=== PATIENT | female | born 1950 | race American Indian/Alaskan Native ===

== ENCOUNTER 2022-01-16 01:39 | Inpatient (IN) | payer SELFPAY ==
[2022-01-16] MEDS ORDERED: ONDANSETRON 4 MG/2 ML INJ IV ONE (02:07)
[2022-01-16] MEDS ORDERED: fentaNYL 100 MCG/2 ML INJ IV ONE ×2 (02:07→02:08)
[2022-01-16] MEDS ORDERED: NITROGLYCERIN 2% OINT 1 GM TP ONE ×2 (02:07→02:08)
--- NOTE | 2022-01-16 02:22 | Emergency Department Report ---
HPI - General Chief Complaint: Chest Pain Time Seen by Provider: 01/16/22 01:58 - HPI HPI: Room 3 The patient is a 71-year-old female present with a chief complaint of chest pain. Patient states her symptoms began approximate 1 hour ago while at rest she developed substernal chest pain and pain in her left upper extremity and back described as cramping and constant in nature. Patient admits to shortness of breath and nausea without vomiting associated with her chest pain. Patient denies diaphoresis. Patient currently gives her chest pain a score of 8/10. Patient states she is never had a stress test or cardiac catheterization ED Past Medical Hx - Past Medical History Hx Hypertension: Yes Hx Heart Attack/AMI: Yes Hx Diabetes: Yes - Surgical History Past Surgical History?: No - Family History Family history: no significant - Social History Smoking Status: Never Smoker Substance Use Type: None (Denies illicit drug use) ED Review of Systems ROS: Stated complaint: CHEST PAIN Other details as noted in HPI Constitutional: denies: diaphoresis, fever Eyes: denies: eye pain ENT: denies: throat pain Respiratory: cough, shortness of breath Cardiovascular: chest pain Endocrine: no symptoms reported Gastrointestinal: nausea. denies: vomiting Genitourinary: denies: dysuria Musculoskeletal: back pain Neurological: denies: headache Physical Exam - Physical Exam Vital Signs: Vital Signs 01/16/22 01:56 Temperature 98.8 F Pulse Rate 108 H Respiratory 16 Rate Blood Pressure 210/146 [Right] O2 Sat by Pulse 99 Oximetry Physical Exam: GENERAL: The patient is well-developed well-nourished female lying on stretcher not appearing to be in acute distress. [] HEENT: Normocephalic. Atraumatic. Extraocular motions are intact. Patient has moist mucous membranes. NECK: Supple. Trachea midline CHEST/LUNGS: Clear to auscultation. There is no respiratory distress noted. HEART/CARDIOVASCULAR: Regular. There is no tachycardia. There is no gallop rub or murmur. ABDOMEN: Abdomen is soft, nontender. Patient has normal bowel sounds. There is no abdominal distention. SKIN: There is no rash. There is no edema. There is no diaphoresis. NEURO: The patient is awake, alert, and oriented. The patient is cooperative. The patient has no focal neurologic deficits. The patient has normal speech. GCS 15 MUSCULOSKELETAL:There is no evidence of acute injury. 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 Kwong- no STEMI ED Medical Decision Making - Lab Data Result diagrams: 01/16/22 02:15 01/16/22 02:15 Laboratory Tests 01/16/22 01/16/22 01/16/22 02:15 02:15 02:15 WBC 6.6 RBC 4.34 Hgb 12.9 Hct 39.3 MCV 91 MCH 30 MCHC 33 RDW 13.1 L Plt Count 223 Lymph % (Auto) 28.9 [place] % (Auto) 8.2 H Eos % (Auto) 2.5 Baso % (Auto) 0.8 Lymph # (Auto) 1.9 [place] # (Auto) 0.5 Eos # (Auto) 0.2 Baso # (Auto) 0.1 Seg Neutrophils % 59.6 Seg Neutrophils # 3.9 VBG pH 7.342 Sodium 136 L Potassium 4.3 Chloride 97.8 L Carbon Dioxide 23 Anion Gap 20 BUN 15 Creatinine 1.2 Estimated GFR 44 BUN/Creatinine Ratio 13 Glucose 590 H* Calcium 9.0 Total Creatine Kinase 270 H CK-MB (CK-2) 3.9 CK-MB (CK-2) Rel Index 1.4 Troponin T 0.046 H Triglycerides 314 H Cholesterol 318 H LDL Cholesterol Direct 230 H HDL Cholesterol 41 Cholesterol/HDL Ratio 7.75 Urine Color Urine Turbidity Urine pH Ur Specific [place] Urine Protein Urine Glucose (UA) Urine Ketones Urine Blood Urine Nitrite Ur Reducing Substances Urine Bilirubin Urine Ictotest Urine Urobilinogen Ur Leukocyte Esterase Urine WBC (Auto) Urine RBC (Auto) U Epithel Cells (Auto) 01/16/22 Unknown WBC RBC Hgb Hct MCV MCH MCHC RDW Plt Count Lymph % (Auto) [place] % (Auto) Eos % (Auto) Baso % (Auto) Lymph # (Auto) [place] # (Auto) Eos # (Auto) Baso # (Auto) Seg Neutrophils % Seg Neutrophils # VBG pH Sodium Potassium Chloride Carbon Dioxide Anion Gap BUN Creatinine Estimated GFR BUN/Creatinine Ratio Glucose Calcium Total Creatine Kinase CK-MB (CK-2) CK-MB (CK-2) Rel Index Troponin T Triglycerides Cholesterol LDL Cholesterol Direct HDL Cholesterol Cholesterol/HDL Ratio Urine Color Yellow Urine Turbidity Clear Urine pH 6.5 Ur Specific [place] 1.010 Urine Protein 30 mg/dl Urine Glucose (UA) 500 Urine Ketones Negative Urine Blood Negative Urine Nitrite Negative Ur Reducing Substances Not Reportable Urine Bilirubin Negative Urine Ictotest Not Reportable Urine Urobilinogen < 2.0 Ur Leukocyte Esterase Negative Urine WBC (Auto) 1.0 Urine RBC (Auto) 1.0 U Epithel Cells (Auto) < 1.0 - EKG Data -: EKG Interpreted by Me EKG shows normal: sinus rhythm Rate: normal - EKG Data When compared to previous EKG there are: previous EKG unavailable Interpretation: nonspecific ST-T wave sandeep - Radiology Data Radiology results: report reviewed (Chest x-ray), image reviewed (Chest x-ray) interpreted by me: Chest x-ray-no definite focal infiltrates, no pneumothorax [facility] [address] [place] [address] XRay Report Signed Patient: CHRISTIANE RICHEY MR#: [id number] : 1950 Acct:[id number] Age/Sex: 71 / F ADM Date: 01/16/22 Loc: ED Attending Dr: Ordering Physician: SHANE TATE MD Date of Service: 01/16/22 Procedure(s): XR chest 1V ap Accession Number(s): [id number] cc: SHANE TATE MD Fluoro Time In Minutes: XR chest 1V ap INDICATION / CLINICAL INFORMATION: chest pain. COMPARISON: None available. FINDINGS: SUPPORT DEVICES: None. HEART /PULMONARY VASCULATURE: No significant abnormality. LUNGS / PLEURA: No acute pulmonary or pleural abnormality. No pneumothorax. ADDITIONAL FINDINGS: No significant additional findings. IMPRESSION: 1. No acute findings. Signer Name: Will Feldman MD Signed: 01/16/2022 2:37 AM Workstation Name: [id number] Transcribed By: SHANTHI Dictated By: WILL FELDMAN MD Electronically Authenticated By: WILL FELDMAN MD Signed Date/Time: 01/16/22236 DD/ 6 TD/TT: - Differential Diagnosis ACS, pericarditis, GERD Critical care attestation.: If time is entered above; I have spent that time in minutes in the direct care of this critically ill patient, excluding procedure time. ED Disposition Clinical Impression: Chest pain, Elevated troponin Disposition: ADMITTED INPATIENT Is pt being admited?: Yes Does the pt Need Aspirin: Yes Condition: Fair Instructions: Nonspecific Chest Pain, Adult Time of Disposition: 04:04 (Care transferred to hospitalist (Dr. Hudson))
--- NOTE | 2022-01-16 02:42 | XRay Report ---
XR chest 1V ap INDICATION / CLINICAL INFORMATION: chest pain. COMPARISON: None available. FINDINGS: SUPPORT DEVICES: None. HEART /PULMONARY VASCULATURE: No significant abnormality. LUNGS / PLEURA: No acute pulmonary or pleural abnormality. No pneumothorax. ADDITIONAL FINDINGS: No significant additional findings. IMPRESSION: 1. No acute findings. Signer Name: Mikey Feldman MD Signed: 01/16/2022 2:37 AM Workstation Name: [id number]
[2022-01-16 02:52] LABS: Basophils # (Auto) 0.1 K/mm3 (0.0-0.1); Basophils % (Auto) 0.8 % (0.0-1.8); Eosinophils # (Auto) 0.2 K/mm3 (0.0-0.4); Eosinophils % (Auto) 2.5 % (0.0-4.3); Hematocrit 39.3 % (30.3-42.9); Hemoglobin 12.9 gm/dl (10.1-14.3); Lymphocytes # (Auto) 1.9 K/mm3 (1.2-5.4); Lymphocytes % (Auto) 28.9 % (13.4-35.0); Mean Corpuscular HGB Conc 33 % (30-34); Mean Corpuscular Volume 91 fl (79-97); Monocytes # (Auto) 0.5 K/mm3 (0.0-0.8); Monocytes % (Auto) 8.2 % (0.0-7.3); Platelet Count 223 K/mm3 (140-440); Red Blood Count 4.34 M/mm3 (3.65-5.03); Red Cell Distribution Width 13.1 % (13.2-15.2)
[2022-01-16 02:53] LABS: Creatine Kinase MB 3.9 ng/mL (0.0-4.0)
[2022-01-16 03:57] LABS: Chol/HDL Ratio 7.75 %
[2022-01-16 03:58] LABS: Bilirubin,Urine Negative (Negative); Blood,Urine Negative (Negative); Color,Urine Yellow (Yellow); PH,Urine 6.5 (5.0-7.0); Urobilinogen,Urine < 2.0 mg/dL (<2.0)
[2022-01-16] MEDS ORDERED: ASPIRIN 325 MG TAB PO ONE (04:04)
[2022-01-16] MEDS ORDERED: INSULIN REGULAR, HUMAN 100 UNITS/1 ML IV ONE (04:05)
[2022-01-16] MEDS ORDERED: traMADol 50 MG TAB PO PRN (05:16)
[2022-01-16] MEDS ORDERED: ACETAMINOPHEN 325 MG TAB PO PRN (05:16)
[2022-01-16] MEDS ORDERED: NITROGLYCERIN 0.4 MG TAB SUBL SL PRN (05:16)
[2022-01-16] MEDS ORDERED: DEXTROSE 50% IN WATER (25GM) 50 ML SYRINGE IV PRN (05:16)
[2022-01-16] MEDS ORDERED: MORPHINE 4 MG/1 ML INJ IV PRN (05:16)
[2022-01-16] MEDS ORDERED: HEPARIN 10,000 UNITS/10 ML VIAL IV ONE ×2 (05:19→05:40)
[2022-01-16] MEDS ORDERED: HEPARIN 10,000 UNITS/10 ML VIAL IV PRN (05:19)
[2022-01-16] MEDS ORDERED: hydrALAZINE 20 MG/1 ML INJ IV PRN (05:25)
--- NOTE | 2022-01-16 05:25 | History and Physical Report ---
History of Present Illness Date of examination: 01/16/22 Date of admission: 01/16/22 Chief complaint: Chest pain History of present illness: 71-year-old female with history of hypertension and diabetes was brought to the emergency room because of chest pain. Patient states her symptoms began approximate 1 hour ago while at rest she developed substernal chest pain and pain in her left upper extremity and back described as cramping and constant in nature. Patient admits to shortness of breath and nausea without vomiting associated with her chest pain. Patient denies diaphoresis. Patient currently gives her chest pain a score of 8/10. Patient states she is never had a stress test or cardiac catheterization In the emergency room patient blood glucose is 590 also patient troponin is 0.046, triglycerides 314 and LDL 230.'s were going to admit the patient , put the patient on aspirin and heparin drip and consult cardiology for evaluation Past History Past Medical History: acute [place], diabetes, hypertension Past Surgical History: No surgical history Social history: no significant social history Family history: diabetes, hypertension Medications and Allergies Allergies Allergy/AdvReac Type Severity Reaction Status Date / Time No Known Allergies Allergy Unverified 01/16/22 01:57 Active Meds: Active Medications Acetaminophen (Acetaminophen 325 Mg Tab) 650 mg PO Q6H PRN PRN Reason: Pain, Mild (1-3) Aspirin (Aspirin Ec 325 Mg Tab) 325 mg PO QDAY BEN Atorvastatin Calcium (Atorvastatin 40 Mg Tab) 40 mg PO QHS BEN Dextrose (Dextrose 50% In Water (25gm) 50 Ml Syringe) 50 ml IV Q30MIN PRN; Protocol PRN Reason: Hypoglycemia Sodium Chloride (Nacl 0.9% 1000 Ml) 1,000 mls @ 100 mls/hr IV DIRECT BEN Insulin Human Lispro (Insulin Lispro 100 Unit/Ml) 0 unit SUB-Q Q6HR BEN; Protocol Morphine Sulfate (Morphine 4 Mg/1 Ml Inj) 2 mg IV Q5MIN PRN PRN Reason: Chest Pain unrelieved by NTG Nitroglycerin (Nitroglycerin 0.4 Mg Tab Subl) 0.4 mg SL Q5M PRN PRN Reason: Chest Pain Pantoprazole Sodium (Pantoprazole 40 Mg Tab) 40 mg PO QDAY BEN Sodium Chloride (Sodium Chloride 0.9% 10 Ml Flush Syringe) 10 ml IV PRN PRN PRN Reason: LINE FLUSH Tramadol HCl (Tramadol 50 Mg Tab) 50 mg PO Q6H PRN PRN Reason: Pain, Moderate (4-6) Review of Systems All systems: negative Cardiovascular: chest pain, shortness of breath, dyspnea on exertion Respiratory: shortness of breath, dyspnea on exertion Exam - Constitutional Vitals: Temp Pulse Resp BP Pulse Ox 98.6 F 93 H 20 189/103 98 01/16/22 03:00 01/16/22 03:00 01/16/22 03:00 01/16/22 03:00 01/16/22 03:00 General appearance: Present: no acute distress, well-nourished - EENT Eyes: Present: PERRL ENT: hearing intact, clear oral mucosa - Neck Neck: Present: supple, normal ROM - Respiratory Respiratory effort: normal Respiratory: bilateral: CTA - Cardiovascular Heart Sounds: Present: S1 & S2. Absent: rub, click - Extremities Extremities: pulses symmetrical, No edema Peripheral Pulses: within normal limits - Abdominal General gastrointestinal: Present: soft, non-tender, non-distended, normal bowel sounds Female genitourinary: Present: normal - Integumentary Integumentary: Present: clear, warm, dry - Musculoskeletal Musculoskeletal: gait normal, strength equal bilaterally - Psychiatric Psychiatric: appropriate mood/affect, intact judgment & insight - Neurologic Neurologic: CNII-XII intact, moves all extremities HEART Score - HEART Score Troponin: Troponin T 0.046 ng/mL (0.00-0.029) H 01/16/22 02:15 Results - Labs CBC & Chem 7: 01/16/22 02:15 01/16/22 02:15 Labs: Laboratory Last Values WBC 6.6 K/mm3 (4.5-11.0) 01/16/22 02:15 RBC 4.34 M/mm3 (3.65-5.03) 01/16/22 02:15 Hgb 12.9 gm/dl (10.1-14.3) 01/16/22 02:15 Hct 39.3 % (30.3-42.9) 01/16/22 02:15 MCV 91 fl (79-97) 01/16/22 02:15 MCH 30 pg (28-32) 01/16/22 02:15 MCHC 33 % (30-34) 01/16/22 02:15 RDW 13.1 % (13.2-15.2) L 01/16/22 02:15 Plt Count 223 K/mm3 (140-440) 01/16/22 02:15 Lymph % (Auto) 28.9 % (13.4-35.0) 01/16/22 02:15 [place] % (Auto) 8.2 % (0.0-7.3) H 01/16/22 02:15 Eos % (Auto) 2.5 % (0.0-4.3) 01/16/22 02:15 Baso % (Auto) 0.8 % (0.0-1.8) 01/16/22 02:15 Lymph # (Auto) 1.9 K/mm3 (1.2-5.4) 01/16/22 02:15 [place] # (Auto) 0.5 K/mm3 (0.0-0.8) 01/16/22 02:15 Eos # (Auto) 0.2 K/mm3 (0.0-0.4) 01/16/22 02:15 Baso # (Auto) 0.1 K/mm3 (0.0-0.1) 01/16/22 02:15 Seg Neutrophils % 59.6 % (40.0-70.0) 01/16/22 02:15 Seg Neutrophils # 3.9 K/mm3 (1.8-7.7) 01/16/22 02:15 VBG pH 7.342 (7.320-7.420) 01/16/22 02:15 Sodium 136 mmol/L (137-145) L 01/16/22 02:15 Potassium 4.3 mmol/L (3.6-5.0) 01/16/22 02:15 Chloride 97.8 mmol/L (98-107) L 01/16/22 02:15 Carbon Dioxide 23 mmol/L (22-30) 01/16/22 02:15 Anion Gap 20 mmol/L 01/16/22 02:15 BUN 15 mg/dL (7-17) 01/16/22 02:15 Creatinine 1.2 mg/dL (0.6-1.2) 01/16/22 02:15 Estimated GFR 44 ml/min 01/16/22 02:15 BUN/Creatinine Ratio 13 % 01/16/22 02:15 Glucose 590 mg/dL (65-100) H* 01/16/22 02:15 Calcium 9.0 mg/dL (8.4-10.2) 01/16/22 02:15 Total Creatine Kinase 270 units/L (30-135) H 01/16/22 02:15 CK-MB (CK-2) 3.9 ng/mL (0.0-4.0) 01/16/22 02:15 CK-MB (CK-2) Rel Index 1.4 (0-4) 01/16/22 02:15 Troponin T 0.046 ng/mL (0.00-0.029) H 01/16/22 02:15 Triglycerides 314 mg/dL (2-149) H 01/16/22 02:15 Cholesterol 318 mg/dL (50-199) H 01/16/22 02:15 LDL Cholesterol Direct 230 mg/dL (50-130) H 01/16/22 02:15 HDL Cholesterol 41 mg/dL (40-59) 01/16/22 02:15 Cholesterol/HDL Ratio 7.75 % 01/16/22 02:15 Urine Color Yellow (Yellow) 01/16/22 Unknown Urine Turbidity Clear (Clear) 01/16/22 Unknown Urine pH 6.5 (5.0-7.0) 01/16/22 Unknown Ur Specific [place] 1.010 (1.003-1.030) 01/16/22 Unknown Urine Protein 30 mg/dl mg/dL (Negative) 01/16/22 Unknown Urine Glucose (UA) 500 mg/dL (Negative) 01/16/22 Unknown Urine Ketones Negative mg/dL (Negative) 01/16/22 Unknown Urine Blood Negative (Negative) 01/16/22 Unknown Urine Nitrite Negative (Negative) 01/16/22 Unknown Ur Reducing Substances Not Reportable 01/16/22 Unknown Urine Bilirubin Negative (Negative) 01/16/22 Unknown Urine Ictotest Not Reportable 01/16/22 Unknown Urine Urobilinogen < 2.0 mg/dL (<2.0) 01/16/22 Unknown Ur Leukocyte Esterase Negative (Negative) 01/16/22 Unknown Urine WBC (Auto) 1.0 /HPF (0.0-6.0) 01/16/22 Unknown Urine RBC (Auto) 1.0 /HPF (0.0-6.0) 01/16/22 Unknown U Epithel Cells (Auto) < 1.0 /HPF (0-13.0) 01/16/22 Unknown - Imaging and Cardiology Chest x-ray: report reviewed Assessment and Plan VTE prophylaxis?: Chemical Plan of care discussed with patient/family: Yes - Patient Problems (1) ACS (acute coronary syndrome) Current Visit: Yes Status: Acute Plan to address problem: Admit the patient to the medical telemetry. Aspirin 325 mg p.o. daily. Lipitor 40 mg p.o. daily. Nitroglycerin as needed. Heparin drip as per protocol. Serial cardiac enzymes. Echocardiogram. Cardiology evaluation (2) Diabetes 1.5, managed as type 2 Current Visit: Yes Status: Acute Plan to address problem: Accu-Chek every 6 hours with Humalog high-dose coverage. Diabetic education. Recheck BMP in the morning (3) Hypertension Current Visit: Yes Status: Acute Plan to address problem: Hydralazine 10 mg IV every 6 hours as needed. We continue the home medication (4) Elevated troponin Current Visit: Yes Status: Acute Plan to address problem: Aspirin 325 mg p.o. daily. Lipitor 40 mg p.o. daily. Nitroglycerin as needed. Heparin drip as per protocol. Serial cardiac enzymes. Echocardiogram. Cardiology evaluation (5) History of [place] (myocardial infarction) Current Visit: Yes Status: Acute Plan to address problem: Aspirin 325 mg p.o. daily. Lipitor 40 mg p.o. daily. Nitroglycerin as needed. Heparin drip as per protocol. Serial cardiac enzymes. Echocardiogram. Cardiology evaluation (6) DVT prophylaxis Current Visit: Yes Status: Acute Plan to address problem: Heparin 5000 units subcu every 12 hours for DVT prophylaxis. Protonix 40 mg p.o. daily for GI prophylaxis. Patient is a full code
[2022-01-16] MEDS ORDERED: SODIUM CHLORIDE 0.9% 1000 ML 1,000 ML IV SCH (05:30)
[2022-01-16] MEDS ORDERED: HEPARIN/ 0.45% NACL DRIP 25,000 UNIT/500 ML BAG IV SCH (06:00)
[2022-01-16] MEDS: INSULIN LISPRO 100 UNIT/ML SUB-Q SCH ×4 (06:20→23:34)
[2022-01-16 06:41] LABS: INR 0.78 (0.87-1.13)
[2022-01-16 06:42] LABS: Partial Thromboplastin Time 30.2 Sec. (24.2-36.6)
[2022-01-16] MEDS ORDERED: INSULIN GLARGINE 100 UNITS/ML SUB-Q NR (08:41)
[2022-01-16] MEDS: PANTOPRAZOLE 40 MG TAB PO SCH (10:07)
--- NOTE | 2022-01-16 11:18 | Electrocardiograph Report ---
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 No previous ECG available for comparison Electronically Signed On 01-16-2022 11:17:50 EDT by Vipin Stokes
--- NOTE | 2022-01-16 11:26 | Electrocardiograph Report ---
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
[2022-01-16] MEDS ORDERED: INSULIN REGULAR, HUMAN 100 UNITS/1 ML SUB-Q SCH (11:30)
[2022-01-16] MEDS ORDERED: SODIUM CHLORIDE 0.9% 500 ML 500 ML IV SCH (12:00)
[2022-01-16] MEDS: METOPROLOL TARTRATE 25 MG TAB PO SCH ×2 (12:37→21:36)
--- NOTE | 2022-01-16 14:28 | Consultation ---
History of Present Illness Consult date: 01/16/22 Requesting physician: ALICE PARRA Consult reason: chest pain History of present illness: Patient is a 71-year-old female with a reported past medical history of hypertension, diabetes, and history of PE (she reports she had one last year) who presents to the ED with complaint of chest pain x1 day. Patient reports that yesterday evening she developed chest pain in her substernal area. She describes chest pain as pressure and rated as 10 out of 10. She reports chest pain is worse with deep breathing and palpation. Patient came to the ED for further evaluation. In the ED patient was found to have a blood glucose of 590, minimally elevated troponin, and elevated SBP> 200. Of note at time of in [facility] patient reports that she has not taken any medications in the past 4 months. Patient reports that she recently moved from [place] to [place] about 4 months ago and since moving she has been out of her blood pressure medications, diabetes medication, and has not been on her anticoagulants. At time of interview patient does report that her chest pain has improved. She denies shortness of breath, nausea, vomiting, diaphoresis. Patient is previously unknown to our practice. Cardiology is consulted for ACS. Past History Past Medical History: acute CT, diabetes, hypertension Past Surgical History: No surgical history Social history: no significant social history Family history: diabetes, hypertension Medications and Allergies Allergies Allergy/AdvReac Type Severity Reaction Status Date / Time No Known Allergies Allergy Verified 01/16/22 05:30 Active Meds: Active Medications Acetaminophen (Acetaminophen 325 Mg Tab) 650 mg PO Q6H PRN PRN Reason: Pain, Mild (1-3) Aspirin (Aspirin Ec 325 Mg Tab) 325 mg PO QDAY BEN Atorvastatin Calcium (Atorvastatin 40 Mg Tab) 40 mg PO QHS BEN Dextrose (Dextrose 50% In Water (25gm) 50 Ml Syringe) 50 ml IV Q30MIN PRN; Protocol PRN Reason: Hypoglycemia Hydralazine HCl (Hydralazine 20 Mg/1 Ml Inj) 10 mg IV Q6H PRN PRN Reason: Blood Pressure Sodium Chloride (Nacl 0.9% 1000 Ml) 1,000 mls @ 100 mls/hr IV DIRECT BEN Last Admin: 01/16/22 07:54 Dose: 100 mls/hr Heparin Sodium/Sodium Chloride (Heparin/ 0.45% Nacl-25,000 Unit/500 Ml) 25,000 unit in 500 mls @ 20 mls/hr IV TITRATE BEN; Protocol Last Admin: 01/16/22 07:49 Dose: 1,000 units/hr, 20 mls/hr Sodium Chloride (Nacl 0.9% 500 Ml) 500 mls @ 50 mls/hr IV DIRECT BEN Stop: 01/16/22 21:59 Insulin Human Lispro (Insulin Lispro 100 Unit/Ml) 0 unit SUB-Q Q6HR [facility]; Pro tocol Last Admin: 01/16/22 12:37 Dose: 4 unit Metoprolol Tartrate (Metoprolol Tartrate 25 Mg Tab) 25 mg PO BID BEN Last Admin: 01/16/22 12:37 Dose: 25 mg Morphine Sulfate (Morphine 4 Mg/1 Ml Inj) 2 mg IV Q5MIN PRN PRN Reason: Chest Pain unrelieved by NTG Nitroglycerin (Nitroglycerin 0.4 Mg Tab Subl) 0.4 mg SL Q5M PRN PRN Reason: Chest Pain Pantoprazole Sodium (Pantoprazole 40 Mg Tab) 40 mg PO QDAY [facility] Last Admin: 01/16/22 10:07 Dose: 40 mg Pneumococcal Polyvalent Vaccine (Pneumococcal 23 Valent 0.5 Ml Vial) 0.5 ml IM .ONCE ONE Stop: 01/17/22 12:01 Sodium Chloride (Sodium Chloride 0.9% 10 Ml Flush Syringe) 10 ml IV PRN PRN PRN Reason: LINE FLUSH Tramadol HCl (Tramadol 50 Mg Tab) 50 mg PO Q6H PRN PRN Reason: Pain, Moderate (4-6) Review of Systems Constitutional: no weight loss, no weight gain Ears, nose, mouth and throat: no ear pain, no ear discharge Cardiovascular: chest pain, no orthopnea, no palpitations Respiratory: no shortness of breath, no dyspnea on exertion Gastrointestinal: no abdominal pain, no nausea, no vomiting Musculoskeletal: no neck stiffness, no neck pain Integumentary: no rash, no pruritis, no redness Neurological: no head injury, no transient paralysis, no paralysis Psychiatric: no anxiety, no memory loss Endocrine: no cold intolerance, no heat intolerance Physical Examination Vital Signs Pulse Resp 101 H 22 01/16/22 01:48 01/16/22 01:48 General appearance: no acute distress HEENT: Positive: PERRL Cardiac: Positive: Reg Rate and Rhythm Lungs: Positive: Normal Breath Sounds Neuro: Positive: Grossly Intact Abdomen: Positive: Soft, Active Bowel Sounds Skin: Negative: Rash, Suspicious Lesions, Ulceration Extremities: Present: upper extr. pulses. Absent: edema Results 01/16/22 02:15 01/16/22 02:15 Cardiac Enzymes 01/16/22 Range/Units 02:15 CK-MB (CK-2) 3.9 (0.0-4.0) ng/mL Coagulation 01/16/22 Range/Units 05:53 PT 11.9 L (12.2-14.9) Sec. INR 0.78 L (0.87-1.13) APTT 30.2 (24.2-36.6) Sec. Lipids 01/16/22 Range/Units 02:15 Triglycerides 314 H (2-149) mg/dL Cholesterol 318 H (50-199) mg/dL HDL Cholesterol 41 (40-59) mg/dL Cholesterol/HDL Ratio 7.75 % CBC 01/16/22 Range/Units 02:15 WBC 6.6 (4.5-11.0) K/mm3 RBC 4.34 (3.65-5.03) M/mm3 Hgb 12.9 (10.1-14.3) gm/dl Hct 39.3 (30.3-42.9) % Plt Count 223 (140-440) K/mm3 Lymph # (Auto) 1.9 (1.2-5.4) K/mm3 [place] # (Auto) 0.5 (0.0-0.8) K/mm3 Eos # (Auto) 0.2 (0.0-0.4) K/mm3 Baso # (Auto) 0.1 (0.0-0.1) K/mm3 Comprehensive Metabolic Panel 01/16/22 Range/Units 02:15 Sodium 136 L (137-145) mmol/L Potassium 4.3 (3.6-5.0) mmol/L Chloride 97.8 L (98-107) mmol/L Carbon Dioxide 23 (22-30) mmol/L BUN 15 (7-17) mg/dL Creatinine 1.2 (0.6-1.2) mg/dL Glucose 590 H* (65-100) mg/dL Calcium 9.0 (8.4-10.2) mg/dL - Imaging and Cardiology Echo: report reviewed Cardiac cath: pending EKG interpretations - Telemetry EKG Rhythm: Sinus Rhythm - EKG Sinus rhythms and dysrhythmias: sinus rhythm Assessment and Plan Patient is a 71-year-old female with a reported past medical history of hypertension, diabetes, and history of PE (she reports she had one last year) who presents to the ED with complaint of chest pain x1 day. NSTEMI Hypertensive urgency Uncontrolled diabetes History of PE not on anticoagulation Noncompliance Obesity Echo 01/16/2022-EF 50 to 55%. Mild diastolic dysfunction is present impaired relaxation pattern. Right ventricle systolic function is normal. Left and right atrium are normal in size. No pericardial effusion Plan: EKG shows sinus rhythm no acute ischemic changes.. Troponins noted to be elev ated 0.04->0.9 Patient currently on aspirin, atorvastatin 40 mg p.o. nightly Anticoagulation with heparin gtt Initiate metoprolol 25 mg p.o. twice daily Patient for cardiac cath in the a.m. Patient to be n.p.o. after midnight Plan of care discussed with patient who verbalized understanding and ericka ortiz Patient seen in conjunction with Dr. Stokes who agrees with plan of care - Patient Problems (1) Non-compliance Current Visit: Yes Status: Acute (2) ACS (acute coronary syndrome) Current Visit: Yes Status: Acute (3) Chest pain Current Visit: Yes Status: Acute (4) Diabetes 1.5, managed as type 2 Current Visit: Yes Status: Acute (5) Hypertension Current Visit: Yes Status: Acute
--- NOTE | 2022-01-16 16:00 | Progress Note ---
Assessment and Plan Assessment and plan: History of present illness: 71-year-old female with history of hypertension and diabetes was brought to the emergency room because of chest pain. Patient states her symptoms began approximate 1 hour ago while at rest she developed substernal chest pain and pain in her left upper extremity and back described as cramping and constant in nature. Patient admits to shortness of breath and nausea without vomiting associated with her chest pain. Patient denies diaphoresis. Patient currently gives her chest pain a score of 8/10. Patient states she is never had a stress test or cardiac catheterization In the emergency room patient blood glucose is 590 also patient troponin is 0.046, triglycerides 314 and LDL 230.'s were going to admit the patient , put the patient on aspirin and heparin drip and consult cardiology for evaluation hospital course: 01/16 : patient is noncompliant with medications. Blood noted. Added lantus in addition to sliding scale. Last accucheck shows bg 216. Patient also has a history of PE/DVT. She is not currently hypoxic or tachycardic. Will order a d- dimer. If elevated, will consider CTA Chest. Troponin uptrending from 0.04 --> 0.947 -> 1.350. D/w cardiology who will take patient to labor contract analyst tomorrow. Assessment and plan: # ACS (acute coronary syndrome) Current Visit: Yes Status: Acute Plan to address problem: Admit the patient to the medical telemetry. Aspirin 81 mg p.o. daily. Lipitor 40 mg p.o. daily. Metoprolol 25 mg po bid Nitroglycerin as needed. Heparin drip as per protocol. Serial cardiac enzymes 0.04 --> 0.947 -> 1.350. Echocardiogram: EF 50-55% Cardiology evaluation- plan for cath tomorrow AM #Type 2 diabetes with hyperglycemia Current Visit: Yes Status: Acute Plan to address problem: Accu-Chek every 6 hours with Humalog high-dose coverage. Diabetic education. Recheck BMP in the morning Lantus 25 units qhs # Hypertension Current Visit: Yes Status: Acute Plan to address problem: Hydralazine 10 mg IV every 6 hours as needed. We continue the home medication metoprolol 25 mg po bid # Elevated troponin Current Visit: Yes Status: Acute Plan to address problem: Aspirin 325 mg p.o. daily. Lipitor 40 mg p.o. daily. Nitroglycerin as needed. Heparin drip as per protocol. Serial cardiac enzymes. Echocardiogram. Cardiol ogy evaluation #History of GA (myocardial infarction) Current Visit: Yes Status: Acute Plan to address problem: -Risk factors noted -cardiology eval #History of PE - not on DOAC, stopped 4 mo ago. - d- dimer ordered - will determine post cath optimal AC strategy going forward # DVT prophylaxis Current Visit: Yes Status: Acute Plan to address problem: Heparin 5000 units subcu every 12 hours for DVT prophylaxis. Protonix 40 mg p.o. daily for GI prophylaxis. Patient is a full code #Morbid Obesity - BMI - Counseled patient on the importance of weight loss, incorporating exercise, and dietary changes (lean meats, fresh fruits and vegetables, and water intake). Patient expresses understanding. - Time: +15 min #Advance care planning Disease education conducted, care plan discussed, diagnoses discussed, prognosis discussed, patient is full code, patient acknowledges understanding and agree with care plan, +30 minutes. History Interval history: No acute complaints this morning. Hospitalist Physical - Physical exam Narrative exam: Physical Exam: VITAL SIGNS: Reviewed. GENERAL: The patient appears normally developed, Vital signs as documented. Obese HEAD: No signs of head trauma. EYES: Pupils are equal. Extraocular motions intact. EARS: Hearing grossly intact. MOUTH: Oropharynx is normal. NECK: No adenopathy, no JVD. CHEST: Chest with clear breath sounds bilaterally. No wheezes, rales, or rhonchi. CARDIAC: Regular rate and rhythm. S1 and S2, without murmurs, gallops, or rubs. VASCULAR: No Edema. Peripheral pulses normal and equal in all extremities. ABDOMEN: Soft, non tender and non distended. No rebound or guarding, and no masses palpated. Bowel Sounds normal. MUSCULOSKELETAL: Good range of motion of all major joints. Extremities without clubbing, cyanosis or edema. NEUROLOGIC EXAM: Alert and oriented x 4. no focal sensory or strength deficits. PSYCHIATRIC: Mood normal. SKIN: detail exam as documented in skin assessment - Constitutional Vitals: Temp Pulse Resp BP Pulse Ox 98.2 F 78 18 148/87 99 01/16/22 12:15 01/16/22 12:15 01/16/22 12:15 01/16/22 12:15 01/16/22 12:15 General appearance: Present: no acute distress HEART Score - HEART Score Troponin: Troponin T 1.350 ng/mL (0.00-0.029) H* D 01/16/22 12:01 Results - Labs CBC & Chem 7: 01/16/22 02:15 01/16/22 02:15 Labs: Laboratory Last Values WBC 6.6 K/mm3 (4.5-11.0) 01/16/22 02:15 RBC 4.34 M/mm3 (3.65-5.03) 01/16/22 02:15 Hgb 12.9 gm/dl (10.1-14.3) 01/16/22 02:15 Hct 39.3 % (30.3-42.9) 01/16/22 02:15 MCV 91 fl (79-97) 01/16/22 02:15 MCH 30 pg (28-32) 01/16/22 02:15 MCHC 33 % (30-34) 01/16/22 02:15 RDW 13.1 % (13.2-15.2) L 01/16/22 02:15 Plt Count 223 K/mm3 (140-440) 01/16/22 02:15 Lymph % (Auto) 28.9 % (13.4-35.0) 01/16/22 02:15 [place] % (Auto) 8.2 % (0.0-7.3) H 01/16/22 02:15 Eos % (Auto) 2.5 % (0.0-4.3) 01/16/22 02:15 Baso % (Auto) 0.8 % (0.0-1.8) 01/16/22 02:15 Lymph # (Auto) 1.9 K/mm3 (1.2-5.4) 01/16/22 02:15 [place] # (Auto) 0.5 K/mm3 (0.0-0.8) 01/16/22 02:15 Eos # (Auto) 0.2 K/mm3 (0.0-0.4) 01/16/22 02:15 Baso # (Auto) 0.1 K/mm3 (0.0-0.1) 01/16/22 02:15 Seg Neutrophils % 59.6 % (40.0-70.0) 01/16/22 02:15 Seg Neutrophils # 3.9 K/mm3 (1.8-7.7) 01/16/22 02:15 PT 11.9 Sec. (12.2-14.9) L 01/16/22 05:53 INR 0.78 (0.87-1.13) L 01/16/22 05:53 APTT 30.2 Sec. (24.2-36.6) 01/16/22 05:53 Heparin Anti-Xa Level 0.39 U.I./ml (0.3-0.7) 01/16/22 14:56 VBG pH 7.342 (7.320-7.420) 01/16/22 02:15 Sodium 136 mmol/L (137-145) L 01/16/22 02:15 Potassium 4.3 mmol/L (3.6-5.0) 01/16/22 02:15 Chloride 97.8 mmol/L (98-107) L 01/16/22 02:15 Carbon Dioxide 23 mmol/L (22-30) 01/16/22 02:15 Anion Gap 20 mmol/L 01/16/22 02:15 BUN 15 mg/dL (7-17) 01/16/22 02:15 Creatinine 1.2 mg/dL (0.6-1.2) 01/16/22 02:15 Estimated GFR 44 ml/min 01/16/22 02:15 BUN/Creatinine Ratio 13 % 01/16/22 02:15 Glucose 590 mg/dL (65-100) H* 01/16/22 02:15 POC Glucose 216 mg/dL (70-105) H 01/16/22 12:12 Calcium 9.0 mg/dL (8.4-10.2) 01/16/22 02:15 Total Creatine Kinase 270 units/L (30-135) H 01/16/22 02:15 CK-MB (CK-2) 3.9 ng/mL (0.0-4.0) 01/16/22 02:15 CK-MB (CK-2) Rel Index 1.4 (0-4) 01/16/22 02:15 Troponin T 1.350 ng/mL (0.00-0.029) H* D 01/16/22 12:01 Triglycerides 314 mg/dL (2-149) H 01/16/22 02:15 Cholesterol 318 mg/dL (50-199) H 01/16/22 02:15 LDL Cholesterol Direct 230 mg/dL (50-130) H 01/16/22 02:15 HDL Cholesterol 41 mg/dL (40-59) 01/16/22 02:15 Cholesterol/HDL Ratio 7.75 % 01/16/22 02:15 Urine Color Yellow (Yellow) 01/16/22 Unknown Urine Turbidity Clear (Clear) 01/16/22 Unknown Urine pH 6.5 (5.0-7.0) 01/16/22 Unknown Ur Specific [place] 1.010 (1.003-1.030) 01/16/22 Unknown Urine Protein 30 mg/dl mg/dL (Negative) 01/16/22 Unknown Urine Glucose (UA) 500 mg/dL (Negative) 01/16/22 Unknown Urine Ketones Negative mg/dL (Negative) 01/16/22 Unknown Urine Blood Negative (Negative) 01/16/22 Unknown Urine Nitrite Negative (Negative) 01/16/22 Unknown Ur Reducing Substances Not Reportable 01/16/22 Unknown Urine Bilirubin Negative (Negative) 01/16/22 Unknown Urine Ictotest Not Reportable 01/16/22 Unknown Urine Urobilinogen < 2.0 mg/dL (<2.0) 01/16/22 Unknown Ur Leukocyte Esterase Negative (Negative) 01/16/22 Unknown Urine WBC (Auto) 1.0 /HPF (0.0-6.0) 01/16/22 Unknown Urine RBC (Auto) 1.0 /HPF (0.0-6.0) 01/16/22 Unknown U Epithel Cells (Auto) < 1.0 /HPF (0-13.0) 01/16/22 Unknown Active Medications - Current Medications Current Medications: Generic Name Dose Route Start Last Admin Trade Name Freq PRN Reason Stop Dose Admin Acetaminophen 650 mg 01/16/22 05:16 Acetaminophen 325 Mg Tab PO Q6H PRN Pain, Mild (1-3) Aspirin 325 mg 01/17/22 10:00 Aspirin Ec 325 Mg Tab PO QDAY BEN Atorvastatin Calcium 40 mg 01/16/22 22:00 Atorvastatin 40 Mg Tab PO QHS BEN Dextrose 50 ml 01/16/22 05:16 Dextrose 50% In Water (25gm) 50 Ml Syringe IV Q30MIN PRN Hypoglycemia Protocol Hydralazine HCl 10 mg 01/16/22 05:25 Hydralazine 20 Mg/1 Ml Inj IV Q6H PRN Blood Pressure Sodium Chloride 1,000 mls @ 100 mls/hr 01/16/22 05:30 01/16/22 07:54 Nacl 0.9% 1000 Ml IV 100 mls/hr DIRECT BEN Administration Heparin Sodium/Sodium Chloride 25,000 unit in 500 mls @ 20 mls/hr 01/16/22 06:00 01/16/22 15:51 Heparin/ 0.45% Nacl-25,000 Unit/500 Ml IV 900 units/hr TITRATE BEN 18 mls/hr Titration Protocol 1,000 UNITS/HR Sodium Chloride 500 mls @ 50 mls/hr 01/16/22 12:00 Nacl 0.9% 500 Ml IV 01/16/22 21:59 DIRECT BEN Insulin Human Lispro 0 unit 01/16/22 06:00 01/16/22 12:37 Insulin Lispro 100 Unit/Ml SUB-Q 4 unit Q6HR BEN Administration Protocol Metoprolol Tartrate 25 mg 01/16/22 12:00 01/16/22 12:37 Metoprolol Tartrate 25 Mg Tab PO 25 mg BID BEN Administration Morphine Sulfate 2 mg 01/16/22 05:16 Morphine 4 Mg/1 Ml Inj IV Q5MIN PRN Chest Pain unrelieved by NTG Nitroglycerin 0.4 mg 01/16/22 05:16 Nitroglycerin 0.4 Mg Tab Subl SL Q5M PRN Chest Pain Pantoprazole Sodium 40 mg 01/16/22 10:00 01/16/22 10:07 Pantoprazole 40 Mg Tab PO 40 mg QDAY BEN Administration Pneumococcal Polyvalent Vaccine 0.5 ml 01/17/22 12:00 Pneumococcal 23 Valent 0.5 Ml Vial IM 01/17/22 12:01 .ONCE ONE Sodium Chloride 10 ml 01/16/22 05:16 Sodium Chloride 0.9% 10 Ml Flush Syringe IV PRN PRN LINE FLUSH Tramadol HCl 50 mg 01/16/22 05:16 Tramadol 50 Mg Tab PO Q6H PRN Pain, Moderate (4-6)
[2022-01-17 04:23] LABS: Basophils % (Auto) 0.4 % (0.0-1.8); Eosinophils # (Auto) 0.2 K/mm3 (0.0-0.4); Eosinophils % (Auto) 2.1 % (0.0-4.3); Hematocrit 38.8 % (30.3-42.9); Hemoglobin 12.8 gm/dl (10.1-14.3); Lymphocytes # (Auto) 1.6 K/mm3 (1.2-5.4); Lymphocytes % (Auto) 22.5 % (13.4-35.0); Mean Corpuscular HGB Conc 33 % (30-34); Mean Corpuscular Volume 90 fl (79-97); Monocytes # (Auto) 0.5 K/mm3 (0.0-0.8); Platelet Count 235 K/mm3 (140-440); Red Blood Count 4.33 M/mm3 (3.65-5.03); Red Cell Distribution Width 13.7 % (13.2-15.2)
[2022-01-17 04:30] LABS: INR 0.9 (0.87-1.13)
[2022-01-17 04:35] LABS: Partial Thromboplastin Time 62.9 Sec. (24.2-36.6)
[2022-01-17] MEDS: INSULIN LISPRO 100 UNIT/ML SUB-Q SCH ×3 (07:36→17:41)
--- NOTE | 2022-01-17 07:59 | Progress Note ---
Assessment and Plan Assessment and plan: History of present illness: 71-year-old female with history of hypertension and diabetes was brought to the emergency room because of chest pain. Patient states her symptoms began approximate 1 hour ago while at rest she developed substernal chest pain and pain in her left upper extremity and back described as cramping and constant in nature. Patient admits to shortness of breath and nausea without vomiting associated with her chest pain. Patient denies diaphoresis. Patient currently gives her chest pain a score of 8/10. Patient states she is never had a stress test or cardiac catheterization In the emergency room patient blood glucose is 590 also patient troponin is 0.046, triglycerides 314 and LDL 230.'s were going to admit the patient , put the patient on aspirin and heparin drip and consult cardiology for evaluation hospital course: 01/16 : patient is noncompliant with medications. Blood noted. Added lantus in addition to sliding scale. Last accucheck shows bg 216. Patient also has a history of PE/DVT. She is not currently hypoxic or tachycardic. Will order a d- dimer. If elevated, will consider CTA Chest. Troponin uptrending from 0.04 --> 0.947 -> 1.350. D/w cardiology who will take patient to blood bank laboratory technician tomorrow. 01/17: Patient post cath. D/w Dr. Aguilera. Pt recieved stent to RCA. Likely d/c tomorrow home with family. CM attempting to allocate contact info for family. Assessment and plan: # ACS (acute coronary syndrome) Current Visit: Yes Status: Acute Plan to address problem: Admit the patient to the medical telemetry. Aspirin 81 mg p.o. daily. Lipitor 40 mg p.o. daily. Metoprolol 25 mg po bid Nitroglycerin as needed. Heparin drip as per protocol. Serial cardiac enzymes 0.04 --> 0.947 -> 1.350. Echocardiogram: EF 50-55% Cardiology evaluation- plan for cath tomorrow AM #Type 2 diabetes with hyperglycemia Current Visit: Yes Status: Acute Plan to address problem: Accu-Chek every 6 hours with Humalog high-dose coverage. Diabetic education. Recheck BMP in the morning Lantus 25 units qhs # Hypertension Current Visit: Yes Status: Acute Plan to address problem: Hydralazine 10 mg IV every 6 hours as needed. We continue the home medication metoprolol 25 mg po bid # Elevated troponin Current Visit: Yes Status: Acute Plan to address problem: Aspirin 325 mg p.o. daily. Lipitor 40 mg p.o. daily. Nitroglycerin as needed. Heparin drip as per protocol. Serial cardiac enzymes. Echocardiogram. Cardiology evaluation #History of DE (myocardial infarction) Current Visit: Yes Status: Acute Plan to address problem: -Risk factors noted -cardiology eval #History of PE - not on DOAC, stopped 4 mo ago. - d- dimer ordered - will determine post cath optimal AC strategy going forward # DVT prophylaxis Current Visit: Yes Status: Acute Plan to address problem: Heparin 5000 units subcu every 12 hours for DVT prophylaxis. Protonix 40 mg p.o. daily for GI prophylaxis. Patient is a full code #Morbid Obesity - BMI - Counseled patient on the importance of weight loss, incorporating exercise, and dietary changes (lean meats, fresh fruits and vegetables, and water intake). Patient expresses understanding. - Time: +15 min #Advance care planning Disease education conducted, care plan discussed, diagnoses discussed, prognosis discussed, patient is full code, patient acknowledges understanding and agree with care plan, +30 minutes. History Interval history: Nauseous post cath. ordered zofran. Hospitalist Physical - Physical exam Narrative exam: Physical Exam: VITAL SIGNS: Reviewed. GENERAL: The patient appears normally developed, Vital signs as documented. Obese HEAD: No signs of head trauma. EYES: Pupils are equal. Extraocular motions intact. EARS: Hearing grossly intact. MOUTH: Oropharynx is normal. NECK: No adenopathy, no JVD. CHEST: Chest with clear breath sounds bilaterally. No wheezes, rales, or rhonchi. CARDIAC: Regular rate and rhythm. S1 and S2, without murmurs, gallops, or rubs. VASCULAR: No Edema. Peripheral pulses normal and equal in all extremities. ABDOMEN: Soft, non tender and non distended. No rebound or guarding, and no masses palpated. Bowel Sounds normal. MUSCULOSKELETAL: Good range of motion of all major joints. Extremities without clubbing, cyanosis or edema. NEUROLOGIC EXAM: Alert and oriented x 4. no focal sensory or strength deficits. PSYCHIATRIC: Mood normal. SKIN: detail exam as documented in skin assessment - Constitutional Vitals: Temp Pulse Resp BP Pulse Ox 97.7 F 76 18 123/70 96 08/11/22 04:20 01/17/22 04:20 01/17/22 04:20 01/17/22 04:20 01/17/22 04:20 General appearance: Present: no acute distress HEART Score - HEART Score Troponin: Troponin T 1.350 ng/mL (0.00-0.029) H* D 01/16/22 12:01 Results - Labs CBC & Chem 7: 01/17/22 03:44 01/17/22 03:44 Labs: Laboratory Last Values WBC 7.2 K/mm3 (4.5-11.0) 01/17/22 03:44 RBC 4.33 M/mm3 (3.65-5.03) 01/17/22 03:44 Hgb 12.8 gm/dl (10.1-14.3) 01/17/22 03:44 Hct 38.8 % (30.3-42.9) 01/17/22 03:44 MCV 90 fl (79-97) 01/17/22 03:44 MCH 30 pg (28-32) 01/17/22 03:44 MCHC 33 % (30-34) 01/17/22 03:44 RDW 13.7 % (13.2-15.2) 01/17/22 03:44 Plt Count 235 K/mm3 (140-440) 01/17/22 03:44 Lymph % (Auto) 22.5 % (13.4-35.0) 01/17/22 03:44 [place] % (Auto) 7.0 % (0.0-7.3) 01/17/22 03:44 Eos % (Auto) 2.1 % (0.0-4.3) 01/17/22 03:44 Baso % (Auto) 0.4 % (0.0-1.8) 01/17/22 03:44 Lymph # (Auto) 1.6 K/mm3 (1.2-5.4) 01/17/22 03:44 [place] # (Auto) 0.5 K/mm3 (0.0-0.8) 01/17/22 03:44 Eos # (Auto) 0.2 K/mm3 (0.0-0.4) 01/17/22 03:44 Baso # (Auto) 0.0 K/mm3 (0.0-0.1) 01/17/22 03:44 Seg Neutrophils % 68.0 % (40.0-70.0) 01/17/22 03:44 Seg Neutrophils # 4.9 K/mm3 (1.8-7.7) 01/17/22 03:44 PT 13.1 Sec. (12.2-14.9) 01/17/22 03:44 INR 0.90 (0.87-1.13) 01/17/22 03:44 APTT 62.9 Sec. (24.2-36.6) H* 01/17/22 03:44 D-Dimer 223.03 ng/mlDDU (0-234) 01/17/22 03:44 Heparin Anti-Xa Level 0.42 U.I./ml (0.3-0.7) 01/17/22 03:44 VBG pH 7.342 (7.320-7.420) 01/16/22 02:15 Sodium 138 mmol/L (137-145) 01/17/22 03:44 Potassium 4.8 mmol/L (3.6-5.0) 01/17/22 03:44 Chloride 102.7 mmol/L (98-107) 01/17/22 03:44 Carbon Dioxide 25 mmol/L (22-30) 01/17/22 03:44 Anion Gap 15 mmol/L 01/17/22 03:44 BUN 17 mg/dL (7-17) 01/17/22 03:44 Creatinine 1.2 mg/dL (0.6-1.2) 01/17/22 03:44 Estimated GFR 54 ml/min 01/17/22 03:44 BUN/Creatinine Ratio 14 % 01/17/22 03:44 Glucose 303 mg/dL (65-100) H 01/17/22 03:44 POC Glucose 287 mg/dL (70-105) H 01/17/22 06:28 Calcium 9.0 mg/dL (8.4-10.2) 01/17/22 03:44 Total Creatine Kinase 270 units/L (30-135) H 01/16/22 02:15 CK-MB (CK-2) 3.9 ng/mL (0.0-4.0) 01/16/22 02:15 CK-MB (CK-2) Rel Index 1.4 (0-4) 01/16/22 02:15 Troponin T 1.350 ng/mL (0.00-0.029) H* D 01/16/22 12:01 Triglycerides 314 mg/dL (2-149) H 01/16/22 02:15 Cholesterol 318 mg/dL (50-199) H 01/16/22 02:15 LDL Cholesterol Direct 230 mg/dL (50-130) H 01/16/22 02:15 HDL Cholesterol 41 mg/dL (40-59) 01/16/22 02:15 Cholesterol/HDL Ratio 7.75 % 01/16/22 02:15 Urine Color Yellow (Yellow) 01/16/22 Unknown Urine Turbidity Clear (Clear) 01/16/22 Unknown Urine pH 6.5 (5.0-7.0) 01/16/22 Unknown Ur Specific [place] 1.010 (1.003-1.030) 01/16/22 Unknown Urine Protein 30 mg/dl mg/dL (Negative) 01/16/22 Unknown Urine Glucose (UA) 500 mg/dL (Negative) 01/16/22 Unknown Urine Ketones Negative mg/dL (Negative) 01/16/22 Unknown Urine Blood Negative (Negative) 01/16/22 Unknown Urine Nitrite Negative (Negative) 01/16/22 Unknown Ur Reducing Substances Not Reportable 01/16/22 Unknown Urine Bilirubin Negative (Negative) 01/16/22 Unknown Urine Ictotest Not Reportable 01/16/22 Unknown Urine Urobilinogen < 2.0 mg/dL (<2.0) 01/16/22 Unknown Ur Leukocyte Esterase Negative (Negative) 01/16/22 Unknown Urine WBC (Auto) 1.0 /HPF (0.0-6.0) 01/16/22 Unknown Urine RBC (Auto) 1.0 /HPF (0.0-6.0) 01/16/22 Unknown U Epithel Cells (Auto) < 1.0 /HPF (0-13.0) 01/16/22 Unknown [place]/IV: Voiding Method Bedside Commode Active Medications - Current Medications Current Medications: Generic Name Dose Route Start Last Admin Trade Name Freq PRN Reason Stop Dose Admin Acetaminophen 650 mg 01/16/22 05:16 Acetaminophen 325 Mg Tab PO Q6H PRN Pain, Mild (1-3) Aspirin 81 mg 01/17/22 10:00 Aspirin Ec 81 Mg Tab PO QDAY BEN Atorvastatin Calcium 40 mg 01/16/22 22:00 01/16/22 21:36 Atorvastatin 40 Mg Tab PO 40 mg QHS BEN Administration Dextrose 50 ml 01/16/22 05:16 Dextrose 50% In Water (25gm) 50 Ml Syringe IV Q30MIN PRN Hypoglycemia Protocol Hydralazine HCl 10 mg 01/16/22 05:25 01/17/22 00:07 Hydralazine 20 Mg/1 Ml Inj IV 10 mg Q6H PRN Administration Blood Pressure Sodium Chloride 1,000 mls @ 100 mls/hr 01/16/22 05:30 01/16/22 07:54 Nacl 0.9% 1000 Ml IV 100 mls/hr DIRECT BEN Administration Heparin Sodium/Sodium Chloride 25,000 unit in 500 mls @ 20 mls/hr 01/16/22 06:00 01/17/22 00:13 Heparin/ 0.45% Nacl-25,000 Unit/500 Ml IV 900 units/hr TITRATE BEN 18 mls/hr Titration Protocol 1,000 UNITS/HR Insulin Glargine 25 units 01/17/22 22:00 Insulin Glargine 100 Units/Ml SUB-Q QHS [facility] Insulin Human Lispro 0 unit 01/16/22 06:00 01/17/22 07:36 Insulin Lispro 100 Unit/Ml SUB-Q 6 unit Q6HR BEN Administration Protocol Metoprolol Tartrate 25 mg 01/16/22 12:00 01/16/22 21:36 Metoprolol Tartrate 25 Mg Tab PO 25 mg BID BEN Administration Morphine Sulfate 2 mg 01/16/22 05:16 01/17/22 00:08 Morphine 4 Mg/1 Ml Inj IV 2 mg Q5MIN PRN Administration Chest Pain unrelieved by NTG Nitroglycerin 0.4 mg 01/16/22 05:16 Nitroglycerin 0.4 Mg Tab Subl SL Q5M PRN Chest Pain Pantoprazole Sodium 40 mg 01/16/22 10:00 01/16/22 10:07 Pantoprazole 40 Mg Tab PO 40 mg QDAY BEN Administration Pneumococcal Polyvalent Vaccine 0.5 ml 01/17/22 12:00 Pneumococcal 23 Valent 0.5 Ml Vial IM 01/17/22 12:01 .ONCE ONE Sodium Chloride 10 ml 01/16/22 05:16 Sodium Chloride 0.9% 10 Ml Flush Syringe IV PRN PRN LINE FLUSH Tramadol HCl 50 mg 01/16/22 05:16 Tramadol 50 Mg Tab PO Q6H PRN Pain, Moderate (4-6) Nutrition/Malnutrition Assess - Dietary Evaluation Nutrition/Malnutrition Findings: Nutrition Notes Start: 01/16/22 16:12 Freq: Status: Active Protocol: Document 01/16/22 16:12 CORTES (Rec: 01/16/22 16:21 CORTES [email or web address]) Nutrition Notes Need for Assessment generated from: MD Order,Education Initial or Follow up Brief Note Current Diagnosis Diabetes,Hypertension Other Pertinent Diagnosis ACS, Elevated Troponin, Hx DE, Hx PE. Current Diet Consistent Carbohydrates Diet (since D 01/16). Height 5 ft 6 in Weight 108.86 kg [place] Body Weight (kg) 59.09 BMI 38.7 Intake Prior to Admission Good Weight change and time frame Pt denies having loss body weight [employer]. Weight Status Obese Subjective/Other Information RD consult for nutrition education assessment. No reports available on Pt's PO intake of meals at the time , will assess at F/U. Pt is on Room Air, O2 saturation @ 98%, according to Vital Signs notes. Pt still in critical condition , not a candidate for Nutrition Education at the time, will assess feasibility on F/U. Percent of energy/protein needs met: Prescribed Consistent Carbohydrates Diet provides for energy/protein needs (2, 061 Kcal/91 g) during LOS. Nutrition Intervention Follow-Up By: 01/23/22 Additional Comments Nutrition education will be provided at F/U, if feasible. Continue monitoring food tolerance, %PO intake of meals , and BM.
[2022-01-17] MEDS: ASPIRIN EC 81 MG TAB PO SCH (09:56)
[2022-01-17] MEDS ORDERED: HEPARIN/NS 5000 UNIT/500ML 1,000 ML IR ONE (09:59)
[2022-01-17] MEDS ORDERED: LIDOCAINE (1%) 10 MG/1 ML VIAL 20 ML MDV ONE (09:59)
[2022-01-17] MEDS ORDERED: ASPIRIN EC 325 MG TAB PO SCH ×2 (10:00)
[2022-01-17] MEDS ORDERED: VERAPAMIL 5 MG/2 ML INJ ONE (10:28)
[2022-01-17] MEDS ORDERED: NITROGLYCERIN SYRINGE 3 ML ONE (10:29)
[2022-01-17] MEDS ORDERED: MIDAZOLAM 2 MG/2 ML INJ ONE (10:31)
[2022-01-17] MEDS ORDERED: fentaNYL 100 MCG/2 ML INJ ONE (10:31)
[2022-01-17] MEDS ORDERED: SODIUM CHLORIDE 0.9% 1000 ML 1,000 ML ONE (10:45)
[2022-01-17] MEDS: HEPARIN 10,000 UNITS/10 ML VIAL ONE ×2 (10:55→11:07)
[2022-01-17] MEDS: CLOPIDOGREL 300 MG TAB ONE ×2 (11:07→11:25)
[2022-01-17] MEDS ORDERED: NITROGLYCERIN DRIP 50 MG/250 ML BOTTLE ONE (11:08)
--- NOTE | 2022-01-17 11:56 | Cardiac Catherization Report ---
DATE OF SERVICE: 01/17/2022 PROCEDURE: Left heart cath/percutaneous coronary intervention. CLINICAL INFORMATION: This is a 71-year-old -[place] female with diabetes uncontrolled, hypertension urgency, acute diastolic heart failure with a non-STEMI type 1, is here for left heart catheterization. DESCRIPTION OF PROCEDURE: Procedure was done via the right radial artery, sterile technique and local anesthesia. A 6-Gambian radial sheath inserted. Procedure was done with moderate sedation, started at 10:50 finished at 11:20 with 30 minutes of moderate sedation. Following findings: Left system engaged with JL3.5 catheter. Left main is large and patent, bifurcates into a large LAD proximal, mid stent is patent. The distal becomes a small caliber vessel with diffuse disease in the apex. Diagonal 1 is an extremely small vessels, 1.5 mm. Circumflex in AV groove is a medium caliber vessel, proximal and mid are patent. OM1 is a small to medium caliber vessel, has an ostial 30% to 40%. OM2 is a small caliber vessel, less than 2 mm, patent. OM3 is a small caliber vessel, less than 2 mm, has an ostial 90%. After that, there is a 40% circumflex lesion going to a small caliber OM4. RCA engaged with JR4, dominant vessel, medium caliber. Proximal to mid has 3 focal lesions, distal patent and bifurcates into a small PLV that is patent and a small PDA that is less than 2 mm, has a proximal 90% lesion. LV gram done in RODERICK and SARMIENTO view shows normal LV function, EF 55%-60%, LVEDP of 5 mmHg, LV is 105. Aortic is 105/66. No gradient across the aortic valve on pullback. The 5-Gambian catheters all taken over a guidewire and 6-Gambian guiding catheter was inserted for the percutaneous coronary intervention of the RCA. 1. Engaged RCA with a 6-Gambian JR4 guiding catheter. 2. Crossed into the PLV with a short Runthrough wire. 3. Predilated from the mid to proximal with a balloon of 2.5 x 15 mm at 10-15 atmospheres x 3 inflations. 4. Intravascular ultrasound shows the disease with distal reference vessel 3.0 x 3.3 mm and proximal 3.0 x 3.5 mm. So, stented the proximal mid RCA with a drug-eluting Resolute 3.0 x 34 mm, inflated at 18 atmospheres. Excellent angiographic result with good stent apposition and expansion noted. No dissection or perforation noted. Removed coronary wire, multiple angiograms revealed excellent angiographic result, GORDON 3 flow, reduced stenosis from 90% down to 0. PLV patent. PDA still patent with a proximal 90% with less than 2 mm vessel. A 6-Gambian guiding catheter taken over a guidewire. A 6-Gambian radial sheath was discontinued. Radial band applied. No hematoma, no bleeding. SUMMARY: 1. Successful percutaneous coronary intervention of the proximal mid RCA with a drug-eluting Resolute 3.0 x 34 mm at 18 atmospheres, IVUS directed. PLV is small caliber, patent. PDA is small caliber vessel, less than 2 mm proximal 90%. 2. Left main is patent. LAD proximal patent, mid stent patent. Distal at the apex, small caliber vessel, small diagonal. Circumflex in AV groove is patent, proximal and mid. OM1 ostial 30% to 40%. OM2 patent, small caliber. OM3 small caliber ostial 90%. After that, there is a 40% lesion. Distal circumflex going to OM4 small caliber. Post-PCI care, aspirin, Plavix was loaded. Continue medical management. Discussed with the patient and the patient's family in detail. TID: [id number] RECEIPT: [id number] JORGE/MARCELA
[2022-01-17] MEDS ORDERED: PNEUMOCOCCAL 23 Valent 0.5 ML VIAL IM ONE (12:00)
[2022-01-17] MEDS ORDERED: HYDROcodone/ACETAMINOPHEN 5-325 MG TAB PO PRN (12:00)
[2022-01-17] MEDS ORDERED: ONDANSETRON 4 MG/2 ML INJ ONE (12:48)
[2022-01-17] MEDS: PANTOPRAZOLE 40 MG TAB PO SCH (12:55)
[2022-01-17] MEDS: METOPROLOL TARTRATE 25 MG TAB PO SCH ×3 (12:55→21:17)
[2022-01-17] MEDS ORDERED: ONDANSETRON 4 MG/2 ML INJ IV PRN (14:00)
--- NOTE | 2022-01-17 14:48 | Progress Note ---
Assessment and Plan Patient is a 71-year-old female with a reported past medical history of hypertension, diabetes, and history of PE (she reports she had one last year) who presents to the ED with complaint of chest pain x1 day. NSTEMI Hypertensive urgency Acute Diastolic dysfunction Uncontrolled diabetes History of PE not on anticoagulation Noncompliance Obesity Echo 01/16/2022-EF 50 to 55%. Mild diastolic dysfunction is present impaired relaxation pattern. Right ventricle systolic function is normal. Left and r ight atrium are normal in size. No pericardial effusion Cardiac cath 01/17/2022-successful PCI of mid RCA with 1 FISH left main is patent. LAD proximal patent, mid stent patent. Circumflex and AV groove is patent, proximal and mid. OM1 ostial 30% to 40%. OM 2 patent small caliber. OM 3 small caliber ostial 90%. Plan: Patient for cardiac cath this a.m. Patient had PCI of mid RCA with 1 FISH. See cath report for full detail Patient currently on aspirin, atorvastatin 40 mg p.o. nightly Initiate DAPT therapy with aspirin and Plavix Initiate Imdur 30 mg p.o. daily Patient was hypertensive will increase to metoprolol 50 mg p.o. twice daily and initiate losartan 50 mg p.o. daily Plan of care discussed with patient who verbalized understanding and acknowled gment Patient seen in conjunction with Dr. Aguilera who agrees with plan of care - Patient Problems (1) Non-compliance Current Visit: Yes Status: Acute (2) ACS (acute coronary syndrome) Current Visit: Yes Status: Acute (3) Chest pain Current Visit: Yes Status: Acute (4) Diabetes 1.5, managed as type 2 Current Visit: Yes Status: Acute (5) Hypertension Current Visit: Yes Status: Acute (6) NSTEMI (non-ST elevated myocardial infarction) Current Visit: Yes Status: Acute (7) Uncontrolled diabetes mellitus Current Visit: Yes Status: Acute Subjective Date of service: 01/17/22 Principal diagnosis: NSTEMI Interval history: Patient for cardiac cath this a.m. Sinus 70s on monitor no events Objective Vital Signs Temp Pulse Resp BP BP Pulse Ox 01/17/22 14:08 160/92 01/17/22 12:55 98 H 196/102 01/17/22 12:15 81 13 187/111 95 01/17/22 12:13 15 01/17/22 12:00 76 15 174/97 96 01/17/22 11:45 75 18 175/96 95 01/17/22 11:35 98.1 F 79 18 192/108 97 01/17/22 09:09 59 L 01/17/22 08:02 98.4 F 67 18 129/78 97 01/17/22 08:00 98 01/17/22 04:20 97.7 F 76 18 123/70 96 01/17/22 00:08 18 01/17/22 00:07 76 209/105 01/16/22 23:30 98.0 F 75 18 209/105 95 01/16/22 20:20 97 01/16/22 20:03 72 01/16/22 19:17 97.5 F L 69 15 125/77 96 01/16/22 16:12 97.9 F 72 18 123/64 95 - Physical Examination General: No Apparent Distress HEENT: Positive: PERRL Neck: Positive: trachea midline Cardiac: Positive: Reg Rate and Rhythm Lungs: Positive: Normal Breath Sounds Neuro: Positive: Grossly Intact Abdomen: Positive: Soft, Active Bowel Sounds Skin: Negative: Rash, Suspicious Lesions, Ulceration Extremities: Present: upper extr. pulses. Absent: edema - Labs and Meds Coagulation 01/17/22 Range/Units 03:44 PT 13.1 (12.2-14.9) Sec. INR 0.90 (0.87-1.13) APTT 62.9 H* (24.2-36.6) Sec. CBC 01/17/22 Range/Units 03:44 WBC 7.2 (4.5-11.0) K/mm3 RBC 4.33 (3.65-5.03) M/mm3 Hgb 12.8 (10.1-14.3) gm/dl Hct 38.8 (30.3-42.9) % Plt Count 235 (140-440) K/mm3 Lymph # (Auto) 1.6 (1.2-5.4) K/mm3 [place] # (Auto) 0.5 (0.0-0.8) K/mm3 Eos # (Auto) 0.2 (0.0-0.4) K/mm3 Baso # (Auto) 0.0 (0.0-0.1) K/mm3 Comprehensive Metabolic Panel 01/17/22 Range/Units 03:44 Sodium 138 (137-145) mmol/L Potassium 4.8 (3.6-5.0) mmol/L Chloride 102.7 (98-107) mmol/L Carbon Dioxide 25 (22-30) mmol/L BUN 17 (7-17) mg/dL Creatinine 1.2 (0.6-1.2) mg/dL Glucose 303 H (65-100) mg/dL Calcium 9.0 (8.4-10.2) mg/dL - Imaging and Cardiology Echo: report reviewed Cardiac cath: report reviewed - Telemetry EKG Rhythm: Sinus Rhythm - EKG Sinus rhythms and dysrhythmias: sinus rhythm
[2022-01-17] MEDS ORDERED: METOPROLOL TARTRATE 25 MG TAB PO SCH (15:00)
[2022-01-17] MEDS ORDERED: LOSARTAN 50 MG TAB PO SCH (15:00)
[2022-01-17] MEDS ORDERED: INSULIN GLARGINE 100 UNITS/ML SUB-Q SCH (22:00)
[2022-01-18] MEDS: INSULIN LISPRO 100 UNIT/ML SUB-Q SCH ×4 (00:23→18:44)
[2022-01-18 05:48] LABS: Hematocrit 36.8 % (30.3-42.9); Hemoglobin 11.8 gm/dl (10.1-14.3)
--- NOTE | 2022-01-18 08:52 | Electrocardiograph Report ---
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
--- NOTE | 2022-01-18 08:56 | Electrocardiograph Report ---
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
[2022-01-18] MEDS ORDERED: CLOPIDOGREL 75 MG TAB PO SCH (10:00)
[2022-01-18] MEDS ORDERED: LOSARTAN 25 MG TAB PO SCH (10:00)
[2022-01-18] MEDS: METOPROLOL TARTRATE 25 MG TAB PO SCH (10:08)
[2022-01-18] MEDS: ASPIRIN EC 81 MG TAB PO SCH (10:08)
[2022-01-18] MEDS: PANTOPRAZOLE 40 MG TAB PO SCH (10:08)
--- NOTE | 2022-01-18 11:45 | Discharge Summary ---
Providers - Providers Date of Admission: 01/16/22 05:16 Date of discharge: 01/18/22 Attending physician: YEYO RUSSO MD 01/16/22 Consult to Cardiac Rehabilitation [CONS] Routine Reason For Exam: Phase I 01/16/22 05:16 Consult to Cardiology [CONS] Routine Consulting Provider: ANGEL KEANE Reason For Exam: acs Consult to Dietitian/Nutrition [CONS] Routine Physician Instructions: Reason For Exam: Reason for Consult: Diet education Primary care physician: MAYUR DENNY Hospitalization Reason for admission: chest pain Condition: Fair Hospital course: History of present illness: 71-year-old female with history of hypertension and diabetes was brought to the emergency room because of chest pain. Patient states her symptoms began approximate 1 hour ago while at rest she developed substernal chest pain and pain in her left upper extremity and back described as cramping and constant in nature. Patient admits to shortness of breath and nausea without vomiting associated with her chest pain. Patient denies diaphoresis. Patient currently gives her chest pain a score of 8/10. Patient states she is never had a stress test or cardiac catheterization In the emergency room patient blood glucose is 590 also patient troponin is 0.046, triglycerides 314 and LDL 230.'s were going to admit the patient , put the patient on aspirin and heparin drip and consult cardiology for evaluation hospital course: 01/16 : patient is noncompliant with medications. Blood noted. Added lantus in addition to sliding scale. Last accucheck shows bg 216. Patient also has a history of PE/DVT. She is not currently hypoxic or tachycardic. Will order a d- dimer. If elevated, will consider CTA Chest. Troponin uptrending from 0.04 --> 0.947 -> 1.350. D/w cardiology who will take patient to custodial laborer tomorrow. 01/17: Patient post cath. D/w Dr. Aguilera. Pt recieved stent to RCA. Likely d/c tomorrow home with family. CM attempting to allocate contact info for family. 01/18 : Discharge home today. Will d/c with Rx for asa, atorvastatin, plavix, cozaar, metoprolol, imdur (e-rx to pharmacy). Assessment and plan: # ACS (acute coronary syndrome) #NSTEMI Current Visit: Yes Status: Acute Plan to address problem: Admit the patient to the medical telemetry. Aspirin 81 mg p.o. daily. Lipitor 40 mg p.o. daily. Metoprolol 25 mg po bid Nitroglycerin as needed. Heparin drip as per protocol. Serial cardiac enzymes 0.04 --> 0.947 -> 1.350. Echocardiogram: EF 50-55% Cardiology evaluation- plan for cath tomorrow AM #Type 2 diabetes with hyperglycemia Current Visit: Yes Status: Acute Plan to address problem: Accu-Chek every 6 hours with Humalog high-dose coverage. Diabetic education. Recheck BMP in the morning Lantus 25 units qhs # Hypertension Current Visit: Yes Status: Acute Plan to address problem: Hydralazine 10 mg IV every 6 hours as needed. We continue the home medication metoprolol 25 mg po bid # Elevated troponin Current Visit: Yes Status: Acute Plan to address problem: Aspirin 325 mg p.o. daily. Lipitor 40 mg p.o. daily. Nitroglycerin as needed. Heparin drip as per protocol. Serial cardiac enzymes. Echocardiogram. Cardiology evaluation #History of [place] (myocardial infarction) Current Visit: Yes Status: Acute Plan to address problem: -Risk factors noted -cardiology eval #History of PE - not on DOAC, stopped 4 mo ago. - d- dimer ordered - will determine post cath optimal AC strategy going forward # DVT prophylaxis Current Visit: Yes Status: Acute Plan to address problem: Heparin 5000 units subcu every 12 hours for DVT prophylaxis. Protonix 40 mg p.o. daily for GI prophylaxis. Patient is a full code #Morbid Obesity - BMI - Counseled patient on the importance of weight loss, incorporating exercise, and dietary changes (lean meats, fresh fruits and vegetables, and water intake). Patient expresses understanding. - Time: +15 min #Advance care planning Disease education conducted, care plan discussed, diagnoses discussed, prognosis discussed, patient is full code, patient acknowledges understanding and agree with care plan, +30 minutes. Disposition: 30 STILL A PATIENT Final Discharge Diagnosis (Prints w/discharge instructions): NSTEMI, Acute coronary syndrome Time spent for discharge: 35 Core Measure Documentation - Palliative Care Palliative Care/ Comfort Measures: Not Applicable - Core Measures Any of the following diagnoses?: acute [place] - Acute [place] Discharge Requirements Aspirin at discharge: Yes NHI/ARB for LVSD if EF <40%: Yes Beta jerilyn at discharge: Yes Statin for LDL = or >100 mg/dl on DC: Yes Exam - Constitutional Vitals: Temp Pulse Resp BP Pulse Ox 97.7 F 75 18 140/82 98 01/18/22 04:14 01/17/22 23:15 01/18/22 04:14 01/18/22 04:14 01/18/22 08:00 Plan Follow up with: MAYUR DENNY MD [Primary Care Provider] - 7 Days MALIA AGUILERA MD [Staff Physician] - 7 Days Prescriptions: AtorvaSTATin [Lipitor] 40 mg PO QHS 30 Days #30 tablet Losartan [Cozaar] 25 mg PO QDAY 30 Days #30 tablet Aspirin EC [Halfprin EC] 81 mg PO QDAY 30 Days #30 tablet ISOSORBIDE MONOnitrate [Imdur ER] 30 mg PO QDAY 30 Days #30 tablet Metoprolol [Lopressor TAB] 25 mg PO BID 30 Days #60 tablet Clopidogrel [Plavix] 75 mg PO QDAY 30 Days #30 tablet
--- NOTE | 2022-01-18 12:47 | Progress Note ---
Assessment and Plan Patient is a 71-year-old female with a reported past medical history of hypertension, diabetes, and history of PE (she reports she had one last year) who presents to the ED with complaint of chest pain x1 day. NSTEMI Hypertensive urgency Acute Diastolic dysfunction Uncontrolled diabetes History of PE not on anticoagulation Noncompliance Obesity Echo 01/16/2022-EF 50 to 55%. Mild diastolic dysfunction is present impaired relaxation pattern. Right ventricle systolic function is normal. Left and r ight atrium are normal in size. No pericardial effusion Cardiac cath 01/17/2022-successful PCI of mid RCA with 1 FISH left main is patent. LAD proximal patent, mid stent patent. Circumflex and AV groove is patent, proximal and mid. OM1 ostial 30% to 40%. OM 2 patent small caliber. OM 3 small caliber ostial 90%. Plan: Patient had PCI of mid RCA with 1 FISH. See cath report for full detail Patient remains chest pain-free Continue DAPT therapy with aspirin and Plavix. Importance of compliance with DAPT therapy discussed with patient Continue atorvastatin 40 mg p.o. nightly, Imdur 30 mg p.o. daily, Metoprolol 35mg PO BID Agree with Losartan 25mg PO QD Cardiac status otherwise stable for discharge Plan of care discussed with patient who verbalized understanding and acknowledgment Patient has a follow-up appointment with Dr. Stokes, [facility], on 02/07/2022 at 1:15 PM in our [place] location. Phone #[phone] Patient seen in conjunction with Dr. Aguilera who agrees with plan of care - Patient Problems (1) Non-compliance Current Visit: Yes Status: Acute (2) ACS (acute coronary syndrome) Current Visit: Yes Status: Acute (3) Chest pain Current Visit: Yes Status: Acute (4) Diabetes 1.5, managed as type 2 Current Visit: Yes Status: Acute (5) Hypertension Current Visit: Yes Status: Acute (6) NSTEMI (non-ST elevated myocardial infarction) Current Visit: Yes Status: Acute (7) Uncontrolled diabetes mellitus Current Visit: Yes Status: Acute Subjective Date of service: 01/18/22 Principal diagnosis: NSTEMI Interval history: Resting in bed in no acute distress. Patient reports no longer having chest pain Sinus 70s on monitor no events Objective Vital Signs Temp Pulse Resp BP BP Pulse Ox 01/18/22 08:00 98 01/18/22 04:14 97.7 F 18 140/82 01/17/22 23:15 98.2 F 75 18 147/87 99 01/17/22 20:44 98 01/17/22 20:36 75 01/17/22 19:14 97.7 F 86 17 136/69 98 01/17/22 15:29 96 F L 75 16 124/88 100 01/17/22 14:08 160/92 01/17/22 12:55 98 H 196/102 01/17/22 12:50 87 98 - Physical Examination General: No Apparent Distress HEENT: Positive: PERRL Neck: Positive: trachea midline Cardiac: Positive: Reg Rate and Rhythm Lungs: Positive: Normal Breath Sounds Neuro: Positive: Grossly Intact Abdomen: Positive: Soft, Active Bowel Sounds Skin: Negative: Rash, Suspicious Lesions, Ulceration Extremities: Present: upper extr. pulses. Absent: edema - Labs and Meds CBC 01/18/22 Range/Units 05:25 Hgb 11.8 (10.1-14.3) gm/dl Hct 36.8 (30.3-42.9) % Plt Count 210 (140-440) K/mm3 - Imaging and Cardiology Echo: report reviewed Cardiac cath: report reviewed - Telemetry EKG Rhythm: Sinus Rhythm - EKG Sinus rhythms and dysrhythmias: sinus rhythm
[2022-01-18 13:31] VITALS: BP 113/66
== END 2022-01-18 20:20 | disposition home or self-care (01) | DRG 247 ==
LOC: ED 01:39 → 4A 05:16
PROVIDERS: ADMIT Hospitalist; ATTEND Internal Medicine
PROC: 027034Z Dilation of Coronary Artery, One Artery with Drug-eluting Intraluminal Device, Percutaneous Approach (ICD-10-PCS; principal; 2022-01-17)
PROC: 4A023N7 Measurement of Cardiac Sampling and Pressure, Left Heart, Percutaneous Approach (ICD-10-PCS; 2022-01-17)
PROC: B2111ZZ Fluoroscopy of Multiple Coronary Arteries using Low Osmolar Contrast (ICD-10-PCS; 2022-01-17)
PROC: B241ZZ3 Ultrasonography of Multiple Coronary Arteries, Intravascular (ICD-10-PCS; 2022-01-17)
DX: I21.4 Non-ST elevation (NSTEMI) myocardial infarction (principal); E11.65 Type 2 diabetes mellitus with hyperglycemia; E66.01 Morbid (severe) obesity due to excess calories; Z68.32 Body mass index [BMI] 32.0-32.9, adult; I16.0 Hypertensive urgency; Z91.19 Patient's noncompliance with other medical treatment and regimen; Z71.3 Dietary counseling and surveillance; Z83.3 Family history of diabetes mellitus; Z82.49 Family history of ischemic heart disease and other diseases of the circulatory system
CPT/HCPCS: 36415; 71045; 80048; 80061; 81001; 82550; 82553; 82805; 82962; 84484; 85014; 85018; 85025; 85049; 85379; 85520; 85610; 85730; 92928; 92978; 93005; 93306; 93458; G0378; J1815; J3490; Q9967; C1725; C1753; C1769; C1874; C1894; C8929; C9600; J0360; J1644; J2250; J2270; J2405; J3010; J7030